=== PATIENT | male | born 1995 | race American Indian/Alaskan Native ===

== ENCOUNTER 2020-07-12 23:13 | Emergency (ER) | payer SELFPAY ==
[2020-07-13 00:23] VITALS: BP 125/90
[2020-07-13] MEDS ORDERED: LIDOCAINE-MPF (1%) 10 MG/1 ML VIAL 5 ML INFILTRATI ONE (02:08)
[2020-07-13] MEDS ORDERED: TETANUS,DIPH,PERTUSS(ACELL) VACCINE 0.5 ML SYRINGE IM ONE (02:08)
[2020-07-13] MEDS ORDERED: IBUPROFEN 600 MG TAB PO ONE (02:08)
--- NOTE | 2020-07-13 02:36 | XRay Report ---
LEFT HAND 3 VIEWS INDICATION / CLINICAL INFORMATION: Foreign bodies - left hand laceration. COMPARISON: None available. FINDINGS: No skeletal abnormalities. No radiopaque foreign bodies. Signer Name: Chava Levine MD Signed: 07/13/2020 2:32 AM Workstation Name: [id number]
--- NOTE | 2020-07-13 03:43 | Emergency Department Report ---
Upper Extremity - HPI Chief Complaint: Laceration/Recheck/Suture Stated Complaint: CUT TO LEFT HAND Upper Extremity: Left Hand (Dorsal left hand bleeding laceration with pain) Occurred When: Today (2 hours ago) Mechanism: Other (Laceration of left hand) Symptoms: Yes Pain with Movement (Left hand pain due to laceration), Yes Laceration or Abrasion (Dorsal left hand pain), No Deformity, No Limited Range of Movement, No Numbness, No Weakness, No Swelling, No Bruising/Ecchymosis Other History: Patient is a 25-year-old -[place] male with past medical history of HIV and who presents to the ED with complaint of acute onset persistent painful bleeding dorsal left hand laceration after a piece of glass broke in his hand when he was trying to clean it causing laceration. Patient states that he is not up-to-date with his tetanus vaccinations. Patient denies numbness and tingling or weakness of left hand, dizziness, syncope, fall, nausea and vomiting. ED Review of Systems ROS: Stated complaint: CUT TO LEFT HAND Other details as noted in HPI Constitutional: denies: chills, fever Eyes: denies: eye pain, eye discharge, vision change ENT: denies: ear pain, throat pain Respiratory: denies: cough, shortness of breath, wheezing Cardiovascular: denies: chest pain, palpitations Endocrine: no symptoms reported Gastrointestinal: denies: abdominal pain, nausea, diarrhea Genitourinary: denies: urgency, dysuria Musculoskeletal: arthralgia (Dorsal left hand bleeding laceration with localized pain). denies: back pain, joint swelling Skin: other (Bleeding dorsal left hand laceration with localized pain). denies: rash, lesions Neurological: denies: headache, weakness, paresthesias Psychiatric: denies: anxiety, depression Hematological/Lymphatic: denies: easy bleeding, easy bruising ED Past Medical Hx - Past Medical History Previous Medical History?: Yes Hx HIV: Yes - Surgical History Past Surgical History?: No - Social History Smoking Status: Never Smoker - Medications Home Medications: Home Medications Medication Instructions Recorded Confirmed Last Taken Type Ibuprofen [Motrin] 600 mg PO Q8H PRN #24 tablet 07/13/20 Unknown Rx cephALEXin [Keflex] 500 mg PO Q12HR #20 cap 07/13/20 Unknown Rx Upper Extremity Exam - Exam General: Vital signs noted. No distress. Alert and acting appropriately. Head and Torso: No HEENT Abnormality, No Neck Tenderness, No Chest/Lungs Abnormality, No Abdominal Tenderness, No Back Tenderness Shoulder Exam: Yes Normal Range of Motion in Shoulder, No Shoulder Tenderness, No Clavicle Tenderness, No Shoulder Deformity, No AC Joint Tenderness Arm Exam: No Arm/Humerus Tenderness, No Arm Deformity Elbow: Yes Normal Range of Motion in Elbow, No Elbow Tenderness, No Elbow Deformity Forearm: No Forearm Tenderness, No Forearm Deformity, No Pain with Pronation, No Pain with Supination Wrist: Yes Normal ROM in Wrist, No Wrist Tenderness, No Wrist Deformity, No Snuffbox Tenderness, No Pain with Axial Thumb Compression Hand: Yes Hand Tenderness (Dorsal left hand localized tenderness due to 3 cm laceration), Yes Normal ROM in Digit(s), No Hand Deformity, No Digit Tenderness, No Digit(s) Deformity, No Tendon Dysfunction CMS Exam: Yes Broken Skin (Dorsal left hand 3 cm laceration), Yes Normal Distal Pulses, Yes Normal Capillary Refill, Yes Normal Distal Sensation ED Course Vital Signs 07/13/20 00:19 Temperature 98.7 F Pulse Rate 73 Respiratory 16 Rate Blood Pressure 125/90 O2 Sat by Pulse 100 Oximetry - Laceration /Wound Repair Left Dorsal Hand Wound Location: upper extremity (Dorsal left hand) Wound Length (cm): 3 Wound's Depth, Shape: superficial, linear Wound Explored: contaminated Irrigated w/ Saline (ccs): 200 Betadine Prep?: Yes Anesthesia: 1% Lidocaine Volume Anesthetic (ccs): 4 Wound Debrided: extensive Wound Repaired With: sutures Suture Size/Type: 4:0, proline Number of Sutures: 8 Layer Closure?: No Sterile Dressing Applied?: Yes Progress: Patient tolerated the procedure well. The wound was then dressed appropriately after suturing. Patient is neurovascularly intact in left hand. ED Medical Decision Making - Radiology Data Radiology results: report reviewed, image reviewed [facility] [address] [place] [address] XRay Report Signed Patient: LUCILA MEHTA JR MR#: [id number] : 1995 Acct:[id number] Age/Sex: 25 / M ADM Date: 07/12/20 Loc: ED Attending Dr: Ordering Physician: SAMI DIXON Date of Service: 07/13/20 Procedure(s): XR hand 3+V LT Accession Number(s): [id number] cc: SAMI DIXON Fluoro Time In Minutes: LEFT HAND 3 VIEWS INDICATION / CLINICAL INFORMATION: Foreign bodies - left hand laceration. COMPARISON: None available. FINDINGS: No skeletal abnormalities. No radiopaque foreign bodies. Signer Name: Chava Levine MD Signed: 07/13/2020 2:32 AM Workstation Name: [id number] Transcribed By: TM Dictated By: Chava Levine MD Electronically Authenticated By: Chava Levine MD Signed Date/Time: 07/13/20231 DD/ 9 TD/TT: Print - Medical Decision Making This is a 25-year-old -[place] male with past medical history of HIV and who presents to the ED with complaint of acute onset persistent painful bleeding dorsal left hand laceration after a piece of glass broke in his hand when he was trying to clean it causing laceration. Patient states that he is not up-to-date with his tetanus vaccinations. Patient was treated for pain in the ED and also received booster tetanus vaccinations. Left hand x-ray shows no acute fractures or subluxations or presence of any foreign bodies within the tissue of the left hand. The left hand laceration was cleaned thoroughly and sutured per protocol. Patient tolerated the procedure well and the wound was dressed appropriately. Patient's left hand is neurovascularly normal. Patient was discharged home on medications and advised to follow-up with his primary care physician in 7 to 10 days for reevaluation. Patient was advised return to the ED immediately if symptoms get worse, otherwise return to the ED or to his primary care physician in 12 to 14 days for suture removal. - Differential Diagnosis hand laceration; hand contusion; muscle strain Critical care attestation.: If time is entered above; I have spent that time in minutes in the direct care of this critically ill patient, excluding procedure time. ED Disposition Clinical Impression: Laceration of left hand without complication, excluding fingers Qualifiers: Encounter type: initial encounter Qualified Code(s): S61.412A - Laceration without foreign body of left hand, initial encounter Disposition: -01 TO HOME OR SELFCARE Is pt being admited?: No Does the pt Need Aspirin: No Condition: Stable Instructions: Sutured Wound Care, [id number], Laceration Care, Adult, [id number] Additional Instructions: Left hand x-ray shows no acute fractures or subluxations or presence of any foreign bodies. Therefore take medications with food, drink plenty of fluids and follow-up with your primary care physician in 7 to 10 days for reevaluation. Return to the ED immediately if symptoms get worse. Otherwise return to the ED or to your primary care physician in 12 to 14 days for suture removal. Prescriptions: cephALEXin [Keflex] 500 mg PO Q12HR #20 cap Ibuprofen [Motrin] 600 mg PO Q8H PRN #24 tablet PRN Reason: Pain Referrals: [facility] [Provider Group] - 7-10 days Forms: Work/School Release Form(ED) Time of Disposition: 03:56 Print Language: ARMENIAN
== END 2020-07-13 04:08 | disposition home or self-care (01) ==
LOC: ED 23:13
DX: S61.412A Laceration without foreign body of left hand, initial encounter (principal); Z21 Asymptomatic human immunodeficiency virus [HIV] infection status; Z79.899 Other long term (current) drug therapy; W25.XXXA Contact with sharp glass, initial encounter; Y93.89 Activity, other specified; Y92.89 Other specified places as the place of occurrence of the external cause; Y99.8 Other external cause status
CPT/HCPCS: 90471; 90715